=== PATIENT | female | born 1995 | race Asian ===

== ENCOUNTER 2022-01-02 08:57 | Emergency (ER) | payer OTHER ==
--- NOTE | 2022-01-02 09:09 | ED Physician Documentation ---
PD HPI URI - Stated complaint Stated Complaint: SOA - Chief complaint Chief Complaint: Resp - History obtained from History obtained from: Patient - History of Present Illness Timing - onset: How many days ago (4) Timing duration: Days (4) Timing details: Abrupt onset, Still present Associated symptoms: Chills, Nasal congestion, Sore throat, Dry cough, Chest pain (left side with cough and deep breathing.), Dyspnea. No: NVD Contributing factors: No: Sick contact, COPD / asthma (has used inhaler with prior URIs in the past, but not regularly.) Improves by: Rest. No: Medication (tried OTC cough med without improvement.) Worsened by: Activity (short of breath with activity), Breathing, Other (cough) Similar symptoms before: Has not had sx before Recently seen: Not recently seen Review of Systems Constitutional: reports: Chills, Myalgias. denies: Fever Nose: reports: Rhinorrhea / runny nose, Congestion Throat: reports: Sore throat Cardiac: reports: Chest pain / pressure. denies: Palpitations Respiratory: reports: Dyspnea, Cough, Wheezing GI: reports: Nausea. denies: Abdominal Pain, Vomiting, Diarrhea Skin: denies: Rash, Lesions PD PAST MEDICAL HISTORY - Past Medical History Cardiovascular: None Respiratory: None Endocrine/Autoimmune: None GI: None - Present Medications Home Medications: Ambulatory Orders Medication Instructions Recorded Confirmed Albuterol Sulf [Ventolin Hfa 2 - 3 puffs INH QID PRN #1 inhaler 01/02/22 Inhaler] Benzonatate [Tessalon] 100 mg PO TID PRN #20 cap 01/02/22 dexAMETHasone [Decadron] 4 mg PO DAILY #5 tablet 01/02/22 - Allergies Allergies/Adverse Reactions: Allergies Allergy/AdvReac Type Severity Reaction Status Date / Time No Known Drug Allergies Allergy Verified 01/02/22 09:05 PD ED PE NORMAL - Vitals Vital signs reviewed: Yes - General General: Alert and oriented X 3, No acute distress, Well developed/nourished - HEENT HEENT: Ears normal, Moist mucous membranes, Pharynx benign - Neck Neck: Supple, no meningeal sign, No adenopathy - Cardiac Cardiac: RRR, No murmur - Respiratory Respiratory: No respiratory distress. No: Clear bilaterally (no coarse sounds but has diffuse expiratory wheezing and decreased tidal volume. ) - Abdomen Abdomen: Soft, Non tender - Derm Derm: Normal color, Warm and dry - Extremities Extremities: No edema, No calf tenderness / cord - Neuro Neuro: Alert and oriented X 3, No motor deficit, Normal speech Results - Vitals Vitals: Vital Signs - 24 hr 01/02/22 01/02/22 01/02/22 09:02 09:45 09:54 Temperature 36.1 C L Heart Rate 95 90 101 H Respiratory 20 18 18 Rate Blood Pressure 131/93 H 127/76 O2 Saturation 96 99 Oxygen O2 Source Room air - Labs Labs: Laboratory Tests 01/02/22 09:45 Coronavirus (PCR) NEGATIVE - Rads (name of study) chest xray Radiology: Prelim report reviewed (no acute process), See rad report PD MEDICAL DECISION MAKING - ED course Complexity details: reviewed results, re-evaluated patient (breathing much improved with MDI. She feels better. ), considered differential, d/w patient Departure - Departure Disposition: 01 Home, Self Care Clinical Impression: Wheezing Upper respiratory infection Qualifiers: URI type: unspecified URI Qualified Code(s): J06.9 - Acute upper respiratory i nfection, unspecified Dyspnea Qualifiers: Dyspnea type: shortness of breath Qualified Code(s): R06.02 - Shortness of breath Condition: Stable Record reviewed to determine appropriate education?: Yes Instructions: ED URI Viral W Wheezing Follow-Up: [facility] [Provider Group] Prescriptions: dexAMETHasone [Decadron] 4 mg PO DAILY #5 tablet Benzonatate [Tessalon] 100 mg PO TID PRN #20 cap PRN Reason: Cough Albuterol Sulf [Ventolin Hfa Inhaler] 2 - 3 puffs INH QID PRN #1 inhaler PRN Reason: Shortness Of Air/Wheezing Comments: Stay well-hydrated. You can use Tylenol if needed for pains or fevers. Use the albuterol inhaler 2 to 3 puffs 4 times a day regularly for the next several days to week and then to as needed. Also add Decadron steroid for airway inflammation to reduce wheezing. Benzonatate if needed for cough suppression. You can still use [id number] cough medicine or Benadryl liquid to help with itchiness and irritation of the throat. Your chest x-ray appears normal without any signs of pneumonia contact collapsed lung, rib injuries. You can still be sore in the rib and rib muscles as well as around the lung related to the infection and cough. This should improve with better breathing and less coughing and the anti-inflammatories. There are several chest cold/viral illnesses going around aside from COVID that could be causing the symptoms. You have a Covid test pending. You need to self quarantine until the result is done and negative. Do not leave your house. Do not get near anybody. The results should be done in 48 to 72 hours, but sometimes longer. We will call with a positive result, the fastest way to get a negative result for confirmation though is to go to the hospital website at [email or web address], click on the my [employer] tab and sign up for the patient portal. If any friends or family get sick and would like to have a Covid test done, but do not have signs or symptoms that would necessitate being hospitalized, we encourage testing throughone of the local pharmacies or the Health Department. Call them to schedule an appointment. I transmitted your prescriptions to [facility] pharmacy in [place]. Discharge Date/Time: 01/02/22 10:32
[2022-01-02] MEDS ORDERED: ALBUTEROL 1 PUFF INH STA (09:22)
[2022-01-02] MEDS ORDERED: BENZONATATE 100 MG CAPSULE PO STA (09:23)
[2022-01-02] MEDS ORDERED: DEXAMETHASONE 10 MG/ML VIAL PO STA (09:23)
[2022-01-02] MEDS ORDERED: ACETAMINOPHEN 325 MG TABLET PO STA (09:23)
[2022-01-02] MEDS ORDERED: CHERRY SYRUP 10 ML UDC PO ONE (09:23)
--- NOTE | 2022-01-02 09:42 | XRAY Report ---
PROCEDURE: Chest 1 View X-Ray INDICATIONS: chest pain left; cough few days TECHNIQUE: One view of the chest was acquired. COMPARISON: None. FINDINGS: SUPPORT DEVICES: None. LUNGS/PLEURA: No focal consolidation, pleural effusion or space-occupying pneumothorax. MEDIASTINUM: The cardiomediastinal silhouette is within normal limits. BONES/SOFT TISSUES: No acute abnormality. IMPRESSION: 1.No acute cardiopulmonary abnormality. Reviewed by: Clayton Stahl MD on 01/02/2022 9:41 AM [facility] Approved by: Clayton Stahl MD on 01/02/2022 9:41 AM [facility] Station ID: [id number]
[2022-01-02 09:55] VITALS: BP 127/76
== END 2022-01-02 10:32 | disposition home or self-care (01) ==
LOC: ED 08:57
DX: J06.9 Acute upper respiratory infection, unspecified (principal); R06.2 Wheezing; Z20.822 Contact with and (suspected) exposure to COVID-19
CPT/HCPCS: 71045; 87635; 94640; 94664; 99283; 99284; A9270